=== PATIENT | male | born 1960 | race African-American/Black ===

== ENCOUNTER 2019-04-21 11:16 | Day surgery (SDC) | payer OTHER ==
[~2019-04-21] VITALS: Ht 188 cm; Wt 99.6 kg
[2019-04-21] VITALS (12 sets, daily range): BP systolic 94–117; BP diastolic 66–77; PULSE 48–64; TEMP 98
[2019-04-21] MEDS ORDERED: PRINIVIL20 MG PO (11:58)
[2019-04-21] MEDS ORDERED: FLOMAX 0.40.4 MG/CAP PO (11:59)
[2019-04-21] MEDS ORDERED: HCTZ 25MG TAB25 MG PO (11:59)
[2019-04-21] MEDS ORDERED: NEURONTIN600 MG/TAB PO (12:00)
[2019-04-21] MEDS ORDERED: NEURONTIN300 MG/CAP PO (12:01)
[2019-04-21] MEDS ORDERED: ROBAXIN 50500 MG/TAB PO (12:02)
[2019-04-21] MEDS ORDERED: TYLENOL 325MG325 MG PO (12:02)
[2019-04-21] MEDS ORDERED: CELEBREX 200MG200 MG PO (12:03)
[2019-04-21] MEDS ORDERED: VITAMIN C500 MG PO (12:03)
[2019-04-21 12:04] LABS: HEMATOCRIT 46.1 % (42.0-52.0); HEMOGLOBIN 15.1 g/dl (13.5-18.0); MEAN CELL VOLUME 92 fl (80.0-100.0); MEAN CORPUSCULAR HEMOGLOBIN 30 pg (27.0-31.0); MEAN CORPUSCULAR HGB CONC 33 g/dl (33.0-37.0); MEAN PLATELET VOLUME 9.9 fl (7.4-10.4); PLATELET COUNT 191 K/mm3 (130-400); RED BLOOD COUNT 5.02 M/mm3 (4.20-5.60); REDCELL DISTRIBUTION WIDTH-CV 13.4 % (11.5-14.5)
[2019-04-21] MEDS ORDERED: ULTRAM 50MG TAB50 MG PO (12:04)
[2019-04-21] MEDS ORDERED: BENGAY COLD THERAP5% TOP (12:04)
[2019-04-21] MEDS ORDERED: ASPIRIN E.C. 8181 MG PO (12:05)
[2019-04-21] MEDS ORDERED: TOPROL XL 25MG25 MG PO (12:09)
[2019-04-21 12:15] LABS: CALCIUM 9.5 mg/dL (8.4-10.2); CREATININE, serum 1.05 (0.66-1.25); INR 1.1 (0.8-3.0); POTASSIUM 3.9 mmol/L (3.4-5.0); PROTHROMBIN TIME 13.2 SECONDS (9.7-12.8)
--- NOTE | 2019-04-21 13:57 | NUR ---
ALL MEDICATIONS GIVEN VORB WITH MD. SEE MERGE FOR ALL MEDICATION ADMIN TIMES.SEE MERGE FOR ALL RASS ASSESSMENTS DURING AND POST PROCEDURE. POSTIIVE BARBEAU'S TEST IN THE RIGHT WRIST, RADIAL PULSE +2.
--- NOTE | 2019-04-21 14:40 | NUR ---
Patient transported back to room 12 at this time. Patient hooked up to monitoring equipment. VS stable. Patient denies any pain at this time. Morena RN at bedside. TR band remains in place with 12 ml of air in the band. Visualized right radial site with RN. Site is soft and nontender, no oozing or hematoma noted at this time. Cap refill <3 seconds. Discussed importance of wrist restrictions with patient and spouse. No other needs at this time, all questions addressed. Bed in locked and lowest position with call light within reach.
--- NOTE | 2019-04-21 14:44 | NUR ---
BEDSIDE REPORT TAKEN FROM NANCY BRYAN IN ORDERING BOX OPERATOR. DR AVILA IN TO SPEAK WITH PT/SO. HEALTHY LIVING ENCOURAGED.
--- NOTE | 2019-04-21 17:30 | NUR ---
PT DID CONTINUE TO HAVE BLEEDING FROM THE RADIAL SITE. 5MLS OF AIR WAS PUT BACK INTO THE TR BAND. PT ALSO VOIDED WITH NO COMPLICATIONS. PT TOLERATED INTAKE WITH NO N/V.
--- NOTE | 2019-04-21 18:00 | NUR ---
RELEASED 5 ML OF AIR, NO BLEEDING. REMAINING AIR WAS REMOVED FROM TR BAND, 7ML. 2X2 AND COBAN WAS APPLIED TO RADIAL SITE. ARM BOARD WAS RE-APPLIED TO REMIND PT TO NOT USE RIGHT ARM AT THIS TIME FOR LIFTING, PULLING, ETC. PT AMBULATING IN AND AROUND THE UNIT WITH NO COMPLICATIONS. D/C INSTRUCTIONS WERE REVIEWED WITH PT/SO. PT/SO VOICE UNDERSTANDING. IV WAS DISCONTINUED WITH CATHETER TIP INTACT. NO PHLEBITIS OR INFILTRATION. PT WAS DISCHARGED VIA W/C TO THE CARE OF SO IN PRIVATE VEHICLE WITH DISCHARGE INSTRUCTIONS IN HAND.
== END 2019-04-21 18:45 | disposition home or self-care (01) ==
LOC: COL.CAR 11:16
PROVIDERS: Internal Medicine Cardiovascular Disease
DX: I25.10 Atherosclerotic heart disease of native coronary artery without angina pectoris (principal); R94.39 Abnormal result of other cardiovascular function study; I10 Essential (primary) hypertension; I45.10 Unspecified right bundle-branch block; Z82.49 Family history of ischemic heart disease and other diseases of the circulatory system
CPT/HCPCS: J1644; J2250; J3010; Q9967